=== PATIENT | female | born 1955 | race Caucasian/White ===

== ENCOUNTER 2018-06-22 12:16 | Emergency (ER) | payer SELFPAY ==
[~2018-06-22] VITALS: Ht 160 cm; Wt 52.6 kg
[~2018-06-22 12:16] MED LIST: HYDR-3165 PO
[2018-06-22] MEDS ORDERED: IV NORMAL SALINE 1000ML BAG 1,000 ML IV SCH (13:05)
--- NOTE | 2018-06-22 13:13 | PHYS DOC ---
Past Medical History Past Medical History: Cancer, COPD, Hypertension Additional Past Medical Histor: CERVICAL CANCER Past Surgical History: Appendectomy, Hysterectomy, Tonsillectomy, Other Additional Past Surgical Histo: RIGHT WRIST Additional Information: quit smoking 1 year ago Alcohol Use: None Drug Use: Marijuana Adult General Chief Complaint Chief Complaint: ABDOMINAL PAIN HPI HPI Patient is a 62-year-old female who presents with complaint of generalized abdominal pain with nausea and vomiting. Patient states that her pain is an 8 out of 10 currently. She states that she has a history of constipation. She states that recently she started taking probiotics and states that initially that was helping for the constipation. She states that over the last week however the probiotics have not been helping and she has had to take milk of magnesia to have a bowel movement. She states that the only thing that comes out however is liquid stool. She also indicates that anytime she eats her abdomen really gets very bloated and if she eats at night, she has vomiting in the morning. Review of Systems Review of Systems Constitutional: Denies fever or chills [] Respiratory: Denies cough or shortness of breath [] Cardiovascular: No additional information not addressed in HPI [] GI: Complains of abdominal pain with nausea and vomiting as well as constipation [] Musculoskeletal: Positive back pain[] Integument: Denies rash or skin lesions [] All other systems were reviewed and found to be within normal limits, except as documented in this note. Current Medications Current Medications Current Medications Medications (Trade) Dose Ordered Sig/Lidia Start Time Stop Time Status Last Admin Dose Admin Info (CONTRAST GIVEN -- Rx MONITORING) 1 each PRN DAILY PRN 06/22/18 14:15 06/24/18 14:14 Iohexol (Omnipaque 300 Mg/ml) 75 ml 1X ONCE 06/22/18 14:15 06/22/18 14:16 DC Morphine Sulfate (Morphine Sulfate) 4 mg PRN Q15MIN PRN 06/22/18 13:15 06/23/18 13:14 06/22/18 15:56 4 MG Ondansetron HCl (Zofran) 4 mg 1X ONCE 06/22/18 13:15 06/22/18 13:16 DC 06/22/18 13:15 4 MG Sodium Chloride 1,000 ml @ 1,000 mls/hr Q1H 06/22/18 13:05 06/22/18 14:04 DC 06/22/18 13:05 1,000 MLS/HR Allergies Allergies Allergies Coded Allergies Type Severity Reaction Last Updated Verified Influenza Virus Vaccines Allergy Intermediate HIVES 08/30/15 Yes codeine Allergy Intermediate 08/30/15 Yes mushroom Allergy Intermediate 08/30/15 Yes Physical Exam Physical Exam Constitutional: Well developed, well nourished, no acute distress, non-toxic appearance. [] HENT: Normocephalic, atraumatic, bilateral external ears normal, oropharynx moist, no oral exudates, nose normal. [] Eyes: PERRLA, EOMI, conjunctiva normal, no discharge. [] Neck: Normal range of motion, no tenderness, supple, no stridor. [] Cardiovascular: Regular rate and rhythm[] Lungs & Thorax: Bilateral breath sounds clear to auscultation [] Abdomen: Bowel sounds decreased, soft, with diffuse abdominal tenderness. [] Skin: Warm, dry, no erythema, no rash. [] Extremities: No tenderness, no cyanosis, no clubbing, ROM intact, no edema. [] Neurologic: Alert and oriented X 3, no focal deficits noted. [] Current Patient Data Vital Signs Vital Signs Date Time Temp Pulse Resp B/P (MAP) Pulse Ox O2 Delivery O2 Flow Rate FiO2 06/22/18 12:30 97.9 84 18 174/81 (112) 99 Room Air 97.9 Lab Values Laboratory Tests Test 06/22/18 12:30 06/22/18 12:31 White Blood Count 7.3 x10^3/uL (4.0-11.0) Red Blood Count 5.31 x10^6/uL (3.50-5.40) Hemoglobin 15.1 g/dL (12.0-15.5) Hematocrit 45.5 % (36.0-47.0) Mean Corpuscular Volume 86 fL (79-100) Mean Corpuscular Hemoglobin 28 pg (25-35) Mean Corpuscular Hemoglobin Concent 33 g/dL (31-37) Red Cell Distribution Width 14.5 % (11.5-14.5) Platelet Count 338 x10^3/uL (140-400) Neutrophils (%) (Auto) 61 % (31-73) Lymphocytes (%) (Auto) 28 % (24-48) Monocytes (%) (Auto) 8 % (0-9) Eosinophils (%) (Auto) 2 % (0-3) Basophils (%) (Auto) 1 % (0-3) Neutrophils # (Auto) 4.4 x10^3uL (1.8-7.7) Lymphocytes # (Auto) 2.1 x10^3/uL (1.0-4.8) Monocytes # (Auto) 0.6 x10^3/uL (0.0-1.1) Eosinophils # (Auto) 0.2 x10^3/uL (0.0-0.7) Basophils # (Auto) 0.1 x10^3/uL (0.0-0.2) Sodium Level 134 mmol/L (136-145) L Potassium Level 4.2 mmol/L (3.5-5.1) Chloride Level 95 mmol/L (98-107) L Carbon Dioxide Level 24 mmol/L (21-32) Anion Gap 15 (6-14) H Blood Urea Nitrogen 8 mg/dL (7-20) Creatinine 0.9 mg/dL (0.6-1.0) Estimated GFR (Cockcroft-Gault) 63.4 BUN/Creatinine Ratio 9 (6-20) Glucose Level 87 mg/dL (70-99) Calcium Level 10.3 mg/dL (8.5-10.1) H Total Bilirubin 0.5 mg/dL (0.2-1.0) Aspartate Amino Transferase (AST) 27 U/L (15-37) Alanine Aminotransferase (ALT) 21 U/L (14-59) Alkaline Phosphatase 56 U/L (46-116) Troponin I Quantitative < 0.017 ng/mL (0.000-0.055) Total Protein 8.2 g/dL (6.4-8.2) Albumin 4.5 g/dL (3.4-5.0) Albumin/Globulin Ratio 1.2 (1.0-1.7) Lipase 237 U/L (73-393) Urine Collection Type Void Urine Color Yellow Urine Clarity Clear Urine pH 6.0 Urine Specific [place] 1.010 Urine Protein Negative mg/dL (NEG-TRACE) Urine Glucose (UA) Negative mg/dL (NEG) Urine Ketones (Stick) 15 mg/dL (NEG) Urine Blood Negative (NEG) Urine Nitrite Negative (NEG) Urine Bilirubin Negative (NEG) Urine Urobilinogen Dipstick 0.2 mg/dL (0.2 mg/dL) Urine Leukocyte Esterase Trace (NEG) Urine RBC 0 /HPF (0-2) Urine WBC 1-4 /HPF (0-4) Urine Bacteria Few /HPF (0-FEW) Laboratory Tests 06/22/18 12:30 Laboratory Tests 06/22/18 12:30 EKG EKG [] Radiology/Procedures Radiology/Procedures [] Impressions: CT study of the abdomen and pelvis with contrast Clinical indications: Abdominal pain. TECHNIQUE: After IV infusion of 75 cc of Omnipaque 300, helical CT scanning of abdomen and pelvis was performed. No GI contrast was administered. This may decrease the sensitivity to detect GI tract pathology. PQRS compliance Statement One or more of the following individualized dose reduction techniques were utilized for this study: 1. Automated exposure control 2. Adjustment of the mA and/or kV according to patient size 3. Use of iterative reconstruction technique COMPARISON: None available. FINDINGS: Prominent René's lobe of the liver is seen which is a normal anatomical variant. The liver and spleen and pancreas are otherwise unremarkable. The gallbladder is normal and no extra hepatic biliary ductal dilatation is seen. Calcified atheromatous disease of the abdominal aorta is seen. No focal aneurysmal dilatation is seen. No enlarged abdominal or pelvic lymphadenopathy is evident. No adrenal mass is seen. Bilateral renal cysts are evident. No hydronephrosis or hydroureter is seen on either side. Urinary bladder is moderately distended. Urinary bladder wall is smooth. Segmental wall thickening of the colon is seen consistent with colitis. There is segmental wall thickening of the small bowel mainly involving the distal ileum. Findings are consistent with enterocolitis. No free air or free fluid or mesenteric edema is seen. Small hiatal hernia is evident. Stomach is not distended and therefore evaluation for gastritis is difficult. No lung base consolidation is evident. No lytic process is evident. IMPRESSION: Segmental wall thickening of the colon and small bowel consistent with enterocolitis. Moderate urinary bladder distention. Electronically signed by: Michael Alcantara MD (06/22/2018 2:37 PM) [facility] Course & Med Decision Making Course & Med Decision Making Pertinent Labs and Imaging studies reviewed. (See chart for details) [] Dragon Disclaimer Dragon Disclaimer This electronic medical record was generated, in whole or in part, using a voice recognition dictation system. Departure Departure Impression: Primary Impression: Enterocolitis Disposition: 01 HOME, SELF-CARE Condition: STABLE Referrals: NO PCP (PCP) Patient Instructions: Colitis Scripts Promethazine Hcl (PROMETHAZINE HCL) 25 Mg Tablet 1 TAB PO PRN Q6HRS PRN for NAUSEA, #12 TAB Prov: YOLANDE BROWN Jr. DO 06/22/18 Hydrocodone/Apap 5-325 (NORCO 5-325 TABLET) 1 Each Tablet 1-2 EACH PO PRN Q6HRS PRN for PAIN, #15 as needed for pain Prov: YOLANDE BROWN Jr. DO 06/22/18 Metronidazole (FLAGYL) 500 Mg Tablet 1 TAB PO QID, #40 TAB Prov: YOLANDE BROWN Jr. DO 06/22/18 Ciprofloxacin Hcl (CIPRO) 500 Mg Tablet 1 TAB PO BID, #20 TAB Prov: YOLANDE BROWN Jr. DO 06/22/18 YOLANDE BROWN Jr. DO Jun 22, 2018 13:13
[2018-06-22 13:15] LABS: BASO # 0.1 x10^3/uL (0.0-0.2); BASO % 1 % (0-3); EOS # 0.2 x10^3/uL (0.0-0.7); EOS % 2 % (0-3); HEMATOCRIT 45.5 % (36.0-47.0); HEMOGLOBIN 15.1 g/dL (12.0-15.5); LYMPH # 2.1 x10^3/uL (1.0-4.8); LYMPH % 28 % (24-48); MEAN CORPUSCULAR HEMOGLOBIN 28 pg (25-35); MEAN CORPUSCULAR HGB CONC 33 g/dL (31-37); MEAN CORPUSCULAR VOLUME 86 fL (79-100); MONO # 0.6 x10^3/uL (0.0-1.1); MONO % 8 % (0-9); NEUT # 4.4 x10^3uL (1.8-7.7); NEUT % 61 % (31-73); PLATELET COUNT 338 x10^3/uL (140-400); RED BLOOD COUNT 5.31 x10^6/uL (3.50-5.40); RED CELL DISTRIBUTION WIDTH 14.5 % (11.5-14.5); WHITE BLOOD COUNT 7.3 x10^3/uL (4.0-11.0)
[2018-06-22] MEDS ORDERED: ONDANSETRON PF 4 MG/2 ML VIAL. IV ONE (13:15)
[2018-06-22 13:18] LABS: BILIRUBIN,URINE NEGATIVE (NEG); CLARITY,URINE CLEAR; COLOR,URINE YELLOW; NITRITE,URINE NEGATIVE (NEG); PROTEIN,URINE NEGATIVE (NEG-TRACE); UROBILINOGEN,URINE 0.2 mg/dL (0.2 mg/dL)
[2018-06-22] MEDS: MORPHINE SULFATE 4 MG/ML VIAL. IV/SQ PRN ×2 (13:28→15:56)
[2018-06-22 13:38] LABS: CALCIUM 10.3 mg/dL (8.5-10.1); CREATININE 0.9 mg/dL (0.6-1.0); GFR 63.4; POTASSIUM 4.2 mmol/L (3.5-5.1)
[2018-06-22 13:41] LABS: ALBUMIN 4.5 g/dL (3.4-5.0); ALBUMIN/GLOBULIN RATIO 1.2 (1.0-1.7); TOTAL BILIRUBIN 0.5 mg/dL (0.2-1.0); TOTAL PROTEIN 8.2 g/dL (6.4-8.2)
[2018-06-22 13:47] LABS: BACTERIA,URINE FEW /HPF (0-FEW); RBC,URINE 0 /HPF (0-2)
[2018-06-22] MEDS ORDERED: CONTRAST GIVEN. MC PRN (14:15)
[2018-06-22] MEDS ORDERED: IOHEXOL 300 MG/ML 100ML VIAL. IV ONE (14:15)
--- NOTE | 2018-06-22 14:42 | RAD ---
CT study of the abdomen and pelvis with contrast Clinical indications: Abdominal pain. TECHNIQUE: After IV infusion of 75 cc of Omnipaque 300, helical CT scanning of abdomen and pelvis was performed. No GI contrast was administered. This may decrease the sensitivity to detect GI tract pathology. PQRS compliance Statement One or more of the following individualized dose reduction techniques were utilized for this study: 1. Automated exposure control 2. Adjustment of the mA and/or kV according to patient size 3. Use of iterative reconstruction technique COMPARISON: None available. FINDINGS: Prominent René's lobe of the liver is seen which is a normal anatomical variant. The liver and spleen and pancreas are otherwise unremarkable. The gallbladder is normal and no extra hepatic biliary ductal dilatation is seen. Calcified atheromatous disease of the abdominal aorta is seen. No focal aneurysmal dilatation is seen. No enlarged abdominal or pelvic lymphadenopathy is evident. No adrenal mass is seen. Bilateral renal cysts are evident. No hydronephrosis or hydroureter is seen on either side. Urinary bladder is moderately distended. Urinary bladder wall is smooth. Segmental wall thickening of the colon is seen consistent with colitis. There is segmental wall thickening of the small bowel mainly involving the distal ileum. Findings are consistent with enterocolitis. No free air or free fluid or mesenteric edema is seen. Small hiatal hernia is evident. Stomach is not distended and therefore evaluation for gastritis is difficult. No lung base consolidation is evident. No lytic process is evident. IMPRESSION: Segmental wall thickening of the colon and small bowel consistent with enterocolitis. Moderate urinary bladder distention. Electronically signed by: Michael Alcantara MD (06/22/2018 2:37 PM) [id number]
[2018-06-22 15:55] VITALS: BP 140/76
[2018-06-22] MEDS ORDERED: CIPR500T94 PO (16:12)
[2018-06-22] MEDS ORDERED: METR500T PO (16:12)
[2018-06-22] MEDS ORDERED: PROM25TA10 PO (16:12)
[2018-06-22] MEDS ORDERED: HYDR-3164 PO (16:12)
== END 2018-06-22 16:16 | disposition home or self-care (01) ==
LOC: ER 12:16
DX: K52.89 Other specified noninfective gastroenteritis and colitis (principal); M54.9 Dorsalgia, unspecified; J44.9 Chronic obstructive pulmonary disease, unspecified; I10 Essential (primary) hypertension; Z90.89 Acquired absence of other organs; Z90.710 Acquired absence of both cervix and uterus; Z87.891 Personal history of nicotine dependence; K59.00 Constipation, unspecified; Z88.5 Allergy status to narcotic agent; Z88.7 Allergy status to serum and vaccine; Z91.018 Allergy to other foods
CPT/HCPCS: 36415; 74177; 80053; 81001; 83690; 84484; 85025; 87086; 96361; 96374; 96375; 96376; 99284; J2270; J2405; J7030